=== PATIENT | male | born 1945 | race Caucasian/White ===

== ENCOUNTER → 2017-05-27 | Outpatient (CLI) | payer OTHER, MEDICARE | LOC: FIMAGING 10:39 | PROVIDERS: ATTEND Family Medicine | DX: R05 Cough (principal) ==

== ENCOUNTER 2018-01-03 12:34 | Observation (INO) | payer OTHER, MEDICARE ==
[2018-01-03] MEDS ORDERED: LIDOCAINE 1% 2 ML INJ ID PRN (12:52)
[2018-01-03] MEDS ORDERED: LR 1,000 ML IV ONE (12:52)
[2018-01-03] MEDS ORDERED: CLINDAMYCIN 900 MG/DEXTROSE 50 ML IV ONE (12:52)
[2018-01-03] MEDS ORDERED: BUPIVACAINE 0.25% 30 ML SDV ONE (14:41)
--- NOTE | 2018-01-03 15:02 | PDANEPAE ---
ANE History of Present Illness ventral hernia repair ANE Past Medical History - Cardiovascular History Hx Hypertension: Yes Hx Arrhythmias: No Hx Chest Pain: No Hx Coronary Artery / Peripheral Vascular Disease: Yes Hx CHF / Valvular Disease: No Hx Palpitations: No Cardiovascular History Comment: HPL - Pulmonary History Hx COPD: No Hx Asthma/Reactive Airway Disease: No Hx Recent Upper Respiratory Infection: No Hx Oxygen in Use at Home: No Hx Sleep Apnea: No Sleep Apnea Screening Result - Last Documented: Positive - Neurologic History Hx Cerebrovascular Accident: No Hx Seizures: No Hx Dementia: No - Endocrine History Hx Diabetes: No Obesity: mild - Renal History Hx Renal Disorders: Yes Renal History Comment: RESIDUAL INCONT POST PRASTATECTPMY - Liver History Hx Hepatic Disorders: No - Neurological & Psychiatric Hx Hx Neurological and Psychiatric Disorders: No - Cancer History Hx Cancer: Yes Cancer History Comment: PROSTATE - GI History GERD: moderate Hx Gastrointestinal Disorders: Yes Gastrointestinal History Comment: GERD. HX OF COLON POLYPS - Other Health History Other Health History: BRUISES EASILY - Chronic Pain History Chronic Pain: No - Surgical History Prior Surgeries: PROSTATECTOMY 05/2017. SANDRA CATARACTS. APPY. LAMINECTOMY 2012 ANE Review of Systems Review of Systems: - Exercise capacity METS (RN): 6 METS ANE Patient History - Allergies Allergies/Adverse Reactions: amoxicillin Allergy (Verified 12/29/17 16:51) RED SPOTS - Home Medications Home Medications: Atorvastatin Calcium [Lipitor 20 mg (RX)] 20 mg PO DAILY 09/29/12 [Last Taken 09:30] Calcium Carbonate [Oyster Shell Calcium 500 mg (OTC)] 500 mg PO DAILY 09/29/12 [ Last Taken 01/02/18 09:30] ESOMEPRAZOLE MAG TRIHYDRATE [NEXIUM] 40 mg PO DAILY 09/29/12 [Last Taken 09:30] Hydrochlorothiazide [Hydrochlorothiazide 12.5 MG (RX)] 12.5 mg PO DAILY [Last Taken 01/02/18 09:30] Multivit-Min/FA/Lycopene/Lut [Centrum Silver Tablet] 1 each PO DAILY 09/29/12 [ Last Taken 12/29/17] Ranitidine HCl [Ranitidine HCl 300 mg] 300 mg PO DAILY 09/29/12 [Last Taken 09:30] Losartan Potassium DAILY 12/29/17 [Last Taken 01/02/18 09:30] Viagra PRN 12/29/17 [Last Taken 01/02/18 09:30] - NPO status NPO Since - Liquids (Date): 01/03/18 NPO Since - Liquids (Time): 03:45 NPO Since - Solids (Date): 01/02/18 NPO Since - Solids (Time): 08:15 - Anes Hx Hx Anesthesia Complications (with details): aware of ETT tube after surgery ended (Madelyn) - Smoking Hx Smoking Status: Former smoker Marijuana use: Yes - Alcohol Use Alcohol Use: Other (2 glasses/day) - Family Anes Hx Family Anes Hx: none ANE Labs/Vital Signs - Labs Result Diagrams: 01/03/18 13:11 - Vital Signs Blood Pressure: 148/99 Heart Rate: 72 Respiratory Rate: 18 O2 Sat (%): 95 Height: 175.26 cm Weight: 79.379 kg ANE Physical Exam - Airway Neck exam: FROM Mallampati Score: Class 2 (short TM distance) Mouth exam: normal dental/mouth exam, small mouth opening - Pulmonary Pulmonary: clear to auscultation - Cardiovascular Cardiovascular: regular rate and rhythym - ASA Status ASA Status: II ANE Anesthesia Plan Anesthesia Plan: general endotracheal anesthesia
[2018-01-03] MEDS ORDERED: MIDAZOLAM 2 MG/2 ML VIAL IVP ONE (15:06)
[2018-01-03] MEDS ORDERED: MIDAZOLAM 2 MG/2 ML VIAL ONE (15:07)
[2018-01-03] MEDS ORDERED: ROCURONIUM 50 MG/5 ML VIAL ONE (15:17)
[2018-01-03] MEDS ORDERED: fentaNYL 250 MCG/5 ML INJ ONE (15:17)
[2018-01-03] MEDS ORDERED: RANITIDINE 50 MG/2 ML VIAL ONE (15:17)
[2018-01-03] MEDS ORDERED: PROPOFOL 200 MG/20 ML VIAL ONE (15:17)
[2018-01-03] MEDS ORDERED: DEXAMETHASONE 4 MG/ML VIAL ONE (15:17)
[2018-01-03] MEDS ORDERED: PHENYLEPHRINE HCL 100 MCG/ML SYR ONE (15:38)
[2018-01-03] MEDS ORDERED: HYDROCODONE/APAP 5/325 TAB PO PRN (16:10)
[2018-01-03] MEDS ORDERED: NALOXONE HCL 0.4 MG/ML INJ IVP PRN (16:10)
[2018-01-03] MEDS ORDERED: oxyCODONE IR 5 MG TAB PO PRN (16:10)
[2018-01-03] MEDS ORDERED: fentaNYL 100 MCG/2 ML INJ IVP PRN (16:10)
[2018-01-03] MEDS ORDERED: ENALAPRILAT DIHYDRATE 1.25 MG/ML VIAL ONE (16:12)
[2018-01-03] MEDS ORDERED: GLYCOPYRROLATE 0.2 MG/1 ML VIAL ONE (16:30)
[2018-01-03] MEDS ORDERED: NEOSTIGMINE METHYLSULFATE 5 MG/5 ML SYR ONE (16:33)
[2018-01-03] MEDS ORDERED: fentaNYL 100 MCG/2 ML INJ ONE (16:45)
--- NOTE | 2018-01-03 16:45 | POSTOPPROG ---
Post Op Note Date of Operation: 01/03/18 Surgeon: Jessee Castro Financial Dealers: Trista Julian Anesthesiologist: Macario Vega Anesthesia: GET(General Endotracheal) Pre-op Diagnosis: ventral hernia Post-op Diagnosis: same and umbilical hernia Procedure: open VH repair and umbilical hernia repair with mesh Findings: ~6cm supraumbilical midline ventral defect c 1cm umbilical defect Inf/Abcess present in the surg proc area at time of surgery?: No EBL: 20cc Complications: none Specimen(s): hernia sac to pathology
[2018-01-03] MEDS ORDERED: HYDROmorphONE/DILAUDID 1 MG/ML INJ IVP PRN (16:46)
[2018-01-03] MEDS ORDERED: ONDANSETRON 4 MG/2 ML VIAL IVP PRN (16:46)
[2018-01-03] MEDS ORDERED: HYDROmorphONE/DILAUDID 1 MG/ML INJ ONE (16:57)
[2018-01-03] MEDS: HYDROmorphONE/DILAUDID 1 MG/ML INJ IVP PRN ×3 (16:59→17:34)
--- NOTE | 2018-01-03 17:01 | POSTANESTH ---
Post Anesthetic Evaluation Cardiovascular Status: Similar to Pre-Op Cond Respiratory Status: Normal, Stable Level of Consciousness/Mental Status: Can Participate in Eval Pain Control: Adequate, Prn Tx Ordered Nausea/Vomiting Control: Adequate, Prn Tx Ordered Complications Possibly Related to Anesthesia: None Noted
[2018-01-03] MEDS: DOCUSATE SODIUM 100 MG CAP PO SCH (21:13)
[2018-01-03] MEDS: FAMOTIDINE 20 MG TAB PO SCH (21:13)
[2018-01-03] MEDS: OXYCODONE/APAP 5/325 TAB PO PRN (22:56)
[2018-01-04] MEDS: OXYCODONE/APAP 5/325 TAB PO PRN ×2 (04:44→09:53)
[2018-01-04] MEDS: DOCUSATE SODIUM 100 MG CAP PO SCH (08:17)
[2018-01-04] MEDS: FAMOTIDINE 20 MG TAB PO SCH (08:18)
[2018-01-04] MEDS ORDERED: ATORVASTATIN CALCIUM 20 MG TAB PO SCH (09:00)
[2018-01-04] MEDS ORDERED: PANTOPRAZOLE SODIUM 40 MG TAB PO SCH (09:00)
--- NOTE | 2018-01-04 09:21 | SOAPPROG ---
SOAP Progress Note Assessment/Plan: Assessment/Plan: 72 Y M s/p open VH and umbilical hernia repairs. POD#1. Doing well. C/o pain. Percocet helping. D/c ANTON drain. D/c to home. Long discussion regarding d/c instructions. S: eating breakfast. no n/v. pain present but percocet helps. O: alert, nad ctab rrr abd soft, inc cdi, +BS drain serosanguinous 01/04/18 09:21 Objective: Vital Signs Temp Pulse Resp BP Pulse Ox 36.4 C 81 18 131/89 H 92 01/04/18 04:00 01/04/18 04:00 01/04/18 04:00 01/04/18 04:00 01/04/18 04:00 Laboratory Results 01/04/18 04:57 01/04/18 04:57 01/03/18 01/04/18 01/05/18 05:59 05:59 05:59 Intake Total 1120 Output Total 140 Balance 980 see above - Time Spent With Patient Time Spent With Patient: 20 minutes - Pending Discharge Pending Discharge Within 24 Hours: Yes Pending Discharge Date: 01/10/18 Pending Discharge Time: 11:00 ICD10 Worksheet Patient Problems: Problems Problem Status Onset Ventral hernia Acute - ICD10 Problem Qualifiers (1) Ventral hernia
[2018-01-04 11:22] VITALS: BP 135/84
[2018-01-05] MEDS ORDERED: ASPIRIN EC 81 MG TAB PO SCH (09:00)
[2018-01-05] MEDS ORDERED: CALCIUM CARBONATE 500 MG TAB PO SCH (09:00)
[2018-01-05] MEDS ORDERED: LOSARTAN POTASSIUM 50 MG TAB PO SCH (09:00)
[2018-01-05] MEDS ORDERED: HYDROCHLOROTHIAZIDE 12.5 MG CAP PO SCH (09:00)
[2018-01-05] MEDS ORDERED: ENOXAPARIN 40 MG/0.4 ML SYR SC SCH (09:00)
--- NOTE | 2018-01-07 19:56 | GOP ---
[f rep st] OPERATIVE REPORT DATE OF OPERATION: 01/03/2018 SURGEON: Jessee Castro MD [employer] SALESPERSON: Trista Julian PA-C ANESTHESIOLOGIST: Dr. Vega PREOPERATIVE DIAGNOSIS: Ventral incisional hernia. POSTOPERATIVE DIAGNOSIS: Ventral incisional hernia. Umbilical hernia. PROCEDURE PERFORMED: Open ventral hernia repair with mesh, and umbilical hernia repair. FINDINGS: Patient was found to have a 6 cm ventral defect through the previous old scar for his pros [place]es de [place] surgery. Also incidentally was found to have a 1 cm umbilical defect. DESCRIPTION OF PROCEDURE: Patient was taken to the operating room, where he received satisfactory ge neral endotracheal anesthesia by Dr. Vega, placed in supine position, prepped and draped in the usua l sterile fashion. A midline abdominal incision was made excising the old scar. Dissection extended down through subcutaneous tissue. The hernia sac was encountered. It was dissected free from surro unding subcutaneous tissue and it was opened. Its contents were reduced palpating onto the fascia. A small umbilical hernia was identified, but no other midline defects. A preperitoneal tunnel was cr eated. The peritoneum was closed with a 3-0 Vicryl suture. The umbilical defect was closed with a f [id number] 0 Ethibond suture, and then a dual-sided Covidien mesh was placed subfascially and sec ured around the periphery of the defect with interrupted 0 Ethibond sutures. The fascia was then naty sed directly with interrupted 0 Ethibond [id number] sutures. Wound was infiltrated with 0.5% Ma rcaine. Blood loss was negligible. There were no complications. The subcu was closed with a runnin g 2-0 Vicryl suture, and the skin with a 4-0 Monocryl subcuticular stitch. He tolerated the procedur e well and was taken to the recovery room in good condition. There were no complications. FINAL DIAGNOSES: Ventral hernia and umbilical hernia. /[id number]/MODL
--- NOTE | 2018-01-09 11:29 | GDS ---
[f rep st] DISCHARGE SUMMARY DISCHARGE DIAGNOSIS: Ventral hernia. OTHER DIAGNOSES: Include back pain, coronary artery disease, gastroesophageal reflux disease, histor y of tobacco use, hyperlipidemia, hypertension, prostate cancer, squamous cell carcinoma. PROCEDURES: Open ventral hernia repair with mesh and umbilical hernia repair. INTRAOPERATIVE FINDINGS: The patient was found to have a 6 cm ventral defect through a previous old scar for his prostate surgery. Also, incidentally, he was found to have a 1 cm umbilical defect. HOSPITAL COURSE: The patient is a 72-year-old male who had a ventral hernia and was also found to rosas ve an umbilical hernia. Both of these were repaired with Dr. Castro as described above. The procedur e was uncomplicated, and he tolerated it well. The patient was kept overnight for observation. He had a few issues with pain control, but eventuall y this improved. His diet was advanced without event. His postoperative course was relatively uneve ntful. DISCHARGE INSTRUCTIONS: The patient was discharged to home in stable condition on postoperative day 1. His Manny-Garcia drain was removed prior to him leaving. Limitations and wound care were discus sed in great detail. /[id number]/MODL
== END 2018-01-04 12:50 | disposition home or self-care (01) ==
LOC: F3N 12:34 → EDSTATUS 14:00 → F3E 18:08
PROVIDERS: ADMIT Surgery; ATTEND Surgery
PROC: 0WQF0ZZ Repair Abdominal Wall, Open Approach (ICD-10-PCS; principal; 2018-01-03 14:00)
DX: K43.2 Incisional hernia without obstruction or gangrene (principal); K42.9 Umbilical hernia without obstruction or gangrene; I25.10 Atherosclerotic heart disease of native coronary artery without angina pectoris; K21.9 Gastro-esophageal reflux disease without esophagitis; E78.5 Hyperlipidemia, unspecified; I10 Essential (primary) hypertension; Z88.0 Allergy status to penicillin; Z87.891 Personal history of nicotine dependence; Z85.46 Personal history of malignant neoplasm of prostate; Z85.828 Personal history of other malignant neoplasm of skin
CPT/HCPCS: 49560; 49585; 88302; C1781; J1100; J1170; J2250; J2370; J2704; J2710; J2780; J3010

== ENCOUNTER 2018-07-06 05:43 | Day surgery (SDC) | payer OTHER, MEDICARE ==
[2018-07-06] MEDS ORDERED: ceFAZolin 2 GM/DEXTROSE 100 ML IV ONE (06:34)
[2018-07-06] MEDS ORDERED: LR 1,000 ML IV ONE (06:34)
--- NOTE | 2018-07-06 07:00 | PDHPUP ---
History & Physical Update H&P update statement: This history and physical update is based on an assessment of the patient which was completed after admission or registration (within 24 hours), but prior to the surgery/procedure. H&P update: H&P reviewed & patient examined, no change in patient's condition since H&P completed
--- NOTE | 2018-07-06 07:11 | PDANEPAE ---
ANE History of Present Illness lap right inguinal hernia repair for RIH ANE Past Medical History - Cardiovascular History Hx Hypertension: Yes Hx Arrhythmias: No Hx Chest Pain: No Hx Coronary Artery / Peripheral Vascular Disease: Yes Hx CHF / Valvular Disease: No Hx Palpitations: No Cardiovascular History Comment: cad. hyperlipidemia - Pulmonary History Hx COPD: No Hx Asthma/Reactive Airway Disease: No Hx Recent Upper Respiratory Infection: No Hx Oxygen in Use at Home: No Hx Sleep Apnea: No Sleep Apnea Screening Result - Last Documented: Positive Pulmonary History Comment: andrew triggers - Neurologic History Hx Cerebrovascular Accident: No Hx Seizures: No Hx Dementia: No - Endocrine History Hx Diabetes: No - Renal History Hx Renal Disorders: Yes Renal History Comment: incontinence s/p prostatectomy. ED - Liver History Hx Hepatic Disorders: No - Neurological & Psychiatric Hx Hx Neurological and Psychiatric Disorders: No - Cancer History Hx Cancer: Yes Cancer History Comment: PROSTATE. skin - GI History Hx Gastrointestinal Disorders: Yes Gastrointestinal History Comment: GERD. HX OF COLON POLYPS - Other Health History Other Health History: BRUISES EASILY. wears glasses. to see dermalogist on - Chronic Pain History Chronic Pain: No - Surgical History Prior Surgeries: ventral and umbilical hernia repair with Castro 01/03/18. PROSTATECTOMY 05/2017. SANDRA CATARACTS. APPY. LAMINECTOMY 2012 ANE Review of Systems Review of Systems: - Exercise capacity METS (RN): 4 METS ANE Patient History - Allergies Allergies/Adverse Reactions: amoxicillin Allergy (Verified 06/27/18 11:20) RED SPOTS - Home Medications Home Medications: Atorvastatin Calcium [Lipitor 20 mg (*)] 09/29/12 [Last Taken 01/02/18 09:30] Calcium Carbonate [Oyster Shell Calcium 500 mg (*)] 09/29/12 [Last Taken 09:30] ESOMEPRAZOLE MAG TRIHYDRATE [NEXIUM] 09/29/12 [Last Taken 01/01/18 09:30] Hydrochlorothiazide [HCTZ (*)] 09/29/12 [Last Taken 01/02/18 09:30] Multivit-Min/FA/Lycopene/Lut [Centrum Silver Tablet] 09/29/12 [Last Taken 12/29] Ranitidine HCl [Ranitidine HCl 300 mg] 09/29/12 [Last Taken 01/02/18 09:30] Losartan Potassium [Cozaar 50 mg (*)] 12/29/17 [Last Taken 01/02/18 09:30] Aspirin EC [Aspirin EC 81 mg (*)] 01/03/18 [Last Taken 12/29/17] Viagra 06/27/18 [Last Taken Unknown] - NPO status NPO Since - Liquids (Date): 07/06/18 NPO Since - Liquids (Time): 05:00 NPO Since - Solids (Date): 06/27/12 - Smoking Hx Smoking Status: Former smoker - Family Anes Hx Family Hx Anesthesia Complications: none ANE Labs/Vital Signs - Vital Signs Blood Pressure: 127/92 Heart Rate: 77 Respiratory Rate: 16 O2 Sat (%): 93 Height: 177.8 cm Weight: 79.379 kg ANE Physical Exam - Airway Neck exam: decreased ROM Mallampati Score: Class 2 Mouth exam: normal dental/mouth exam - Pulmonary Pulmonary: no respiratory distress, no rales or rhonchi - Cardiovascular Cardiovascular: regular rate and rhythym, no murmur, rub, or gallop - ASA Status ASA Status: III ANE Anesthesia Plan Anesthesia Plan: general endotracheal anesthesia Total IV Anesthesia: No
[2018-07-06] MEDS ORDERED: MIDAZOLAM 2 MG/2 ML VIAL IVP ONE (07:13)
[2018-07-06] MEDS ORDERED: BUPIVACAINE 0.5% 30 ML SDV ONE (07:24)
[2018-07-06] MEDS ORDERED: DEXAMETHASONE 4 MG/ML VIAL ONE (08:35)
[2018-07-06] MEDS ORDERED: fentaNYL 250 MCG/5 ML INJ ONE (08:35)
[2018-07-06] MEDS ORDERED: LIDOCAINE 2% 100 MG/5 ML SYR ONE (08:35)
[2018-07-06] MEDS ORDERED: ONDANSETRON 4 MG/2 ML VIAL ONE (08:35)
[2018-07-06] MEDS ORDERED: ROCURONIUM 100 MG/10 ML VIAL ONE (08:35)
[2018-07-06] MEDS ORDERED: SUGAMMADEX SODIUM 200 MG/2 ML VIAL IVP ONE (08:35)
[2018-07-06] MEDS ORDERED: PROPOFOL 200 MG/20 ML VIAL ONE (08:36)
[2018-07-06] MEDS ORDERED: HYDROCODONE/APAP 5/325 TAB PO PRN (09:52)
[2018-07-06] MEDS ORDERED: LABETALOL HCL 5 MG/ML 20 ML MDV IVP PRN (09:52)
[2018-07-06] MEDS ORDERED: HYDROmorphONE/DILAUDID 2 MG/ML INJ IVP PRN (09:52)
[2018-07-06] MEDS ORDERED: fentaNYL 100 MCG/2 ML INJ IVP PRN (09:52)
[2018-07-06] MEDS ORDERED: LR 500 ML IV PRN (09:52)
[2018-07-06] MEDS ORDERED: MEPERIDINE 25 MG/0.5 ML AMP IVP PRN (09:52)
[2018-07-06] MEDS ORDERED: NALOXONE HCL 0.4 MG/ML INJ IVP PRN (09:52)
[2018-07-06] MEDS ORDERED: ONDANSETRON 4 MG/2 ML VIAL IVP PRN (09:52)
--- NOTE | 2018-07-06 10:05 | POSTOPPROG ---
Post Op Note Date of Operation: 07/06/18 Surgeon: Jessee Castro Supervisor [employer] Charge Loading: Kyrie Anesthesiologist: Marco Anesthesia: GET(General Endotracheal) Pre-op Diagnosis: BIH Post-op Diagnosis: same Indication: same Procedure: Lap BIH repair with mesh Findings: Left indirect hernia, Right direct hernia Inf/Abcess present in the surg proc area at time of surgery?: No Depth: Deep Incisional (Fascial) EBL: Minimal
--- NOTE | 2018-07-06 10:29 | POSTANESTH ---
Post Anesthetic Evaluation Cardiovascular Status: Normal, Stable Respiratory Status: Normal, Stable Level of Consciousness/Mental Status: Can Participate in Eval, Mildly Sleepy, Arousable Pain Control: Adequate, Prn Tx Ordered Nausea/Vomiting Control: Adequate, Prn Tx Ordered Complications Possibly Related to Anesthesia: None Noted
[2018-07-06] MEDS ORDERED: fentaNYL 100 MCG/2 ML INJ ONE (10:42)
[2018-07-06 11:54] VITALS: BP 124/82
== END 2018-07-06 12:36 | disposition home or self-care (01) ==
LOC: FSGY 05:43
PROVIDERS: ATTEND Surgery
PROC: 0YUA4JZ Supplement Bilateral Inguinal Region with Synthetic Substitute, Percutaneous Endoscopic Approach (ICD-10-PCS; principal; 2018-07-06 07:15)
DX: K40.20 Bilateral inguinal hernia, without obstruction or gangrene, not specified as recurrent (principal); I25.10 Atherosclerotic heart disease of native coronary artery without angina pectoris; K21.9 Gastro-esophageal reflux disease without esophagitis; E78.5 Hyperlipidemia, unspecified; I10 Essential (primary) hypertension; Z79.82 Long term (current) use of aspirin; Z87.891 Personal history of nicotine dependence; Z85.46 Personal history of malignant neoplasm of prostate; Z86.010 Personal history of colon polyps; Z85.828 Personal history of other malignant neoplasm of skin; Z98.890 Other specified postprocedural states; Z88.0 Allergy status to penicillin
CPT/HCPCS: C1727; C1781; J0690; J1100; J2001; J2250; J2405; J2704; J3010